=== PATIENT | female | born 1985 | race Caucasian/White ===

== ENCOUNTER 2018-08-26 20:38 | Inpatient (IN) | payer OTHER ==
[2018-08-26] MEDS ORDERED: NACL 0.9% 3 ML SYG IV (22:30)
[2018-08-26] MEDS ORDERED: HYDROCODONE/APAP (5/325) TAB PO ×2 (22:30)
[2018-08-27] MEDS: DEXTROSE 5%-0.45% NACL 1,000 ML IV ×4 (00:13→21:23)
[2018-08-27] MEDS: ACETAMINOPHEN 325 MG TAB PO ×2 (00:44→20:14)
[2018-08-27] MEDS: KETOROLAC 30 MG INJ IV ×4 (03:51→22:13)
[2018-08-27 05:48] LABS: ADD MAN DIFF? NO
[2018-08-27 05:52] LABS: BASOPHILS % 0.4 % (0.0-2.0); EOSINOPHILS # 0.2 10^3/ul (0.0-0.5); EOSINOPHILS % 1.6 % (0.0-7.0); HEMATOCRIT 42.8 % (37.0-47.0); HEMOGLOBIN 14.2 g/dl (12.0-16.0); LYMPHOCYTES # 2.4 10^3/ul (0.8-2.9); LYMPHOCYTES % 22.7 % (15.0-51.0); MEAN CORPUSCULAR HEMOGLOBIN 28.7 pg (29.0-33.0); MEAN CORPUSCULAR HGB CONC 33.2 g/dl (32.0-37.0); MEAN CORPUSCULAR VOLUME 86.6 fl (82.0-101.0); MEAN PLATELET VOLUME 9.9 fl (7.4-10.4); MONOCYTE # 0.9 10^3/ul (0.3-0.9); MONOCYTES % 8.6 % (0.0-11.0); PLATELET COUNT 321 10^3/UL (140-415); RED BLOOD COUNT 4.94 10^6/ul (4.20-5.40)
[2018-08-27 05:52] LABS: WHITE BLOOD COUNT 10.7 10^3/ul (4.8-10.8)
[2018-08-27 06:08] LABS: ALANINE AMINOTRANSFERASE 16 IU/L (13-69); ALBUMIN 4.3 g/dl (3.3-4.9); ALBUMIN/GLOBULIN RATIO 1.48; ALKALINE PHOSPHATASE 47 IU/L (42-121); ANION GAP 10 (5-13); ASPARTATE AMINO TRANSFERASE 22 IU/L (15-46); BILIRUBIN,INDIRECT 0.5 mg/dl (0-1.1); BILIRUBIN,TOTAL 0.5 mg/dl (0.2-1.3); BLOOD UREA NITROGEN 5 mg/dl (7-20); CALCIUM 9.4 mg/dl (8.4-10.2); CARBON DIOXIDE 24 mmol/L (21-31); CHLORIDE 105 mmol/L (97-110); CREATININE 0.57 mg/dl (0.44-1.00); Estimated GFR > 60 mL/min (>60); GLUCOSE 106 mg/dl (70-220); PHOSPHORUS 3.4 mg/dl (2.5-4.9); POTASSIUM 3.7 mmol/L (3.5-5.1); SODIUM 139 mmol/L (135-144); TOTAL PROTEIN 7.2 g/dl (6.1-8.1)
[2018-08-27] MEDS: ONDANSETRON 4 MG INJ IV ×2 (09:32→17:17)
[2018-08-27] MEDS: NICOTINE (14 MG/24 HR) PATCH TRANSDERM (11:51)
[2018-08-27 19:28] LABS: ADD UMIC YES; UR ASCORBIC ACID NEGATIVE (NEGATIVE); UR BACTERIA FEW /HPF (NONE SEEN); UR BILIRUBIN (Dip) NEGATIVE (NEGATIVE); UR BLOOD (Dip) NEGATIVE (NEGATIVE); UR CLARITY CLOUDY (CLEAR); UR COLOR YELLOW (YELLOW); UR GLUCOSE (Dip) NEGATIVE (NEGATIVE); UR KETONES (Dip) NEGATIVE (NEGATIVE); UR LEUKOCYTE ESTERASE (Dip) NEGATIVE Leu/ul (NEGATIVE); UR MUCUS FEW /HPF (NONE SEEN); UR NITRITE (Dip) NEGATIVE (NEGATIVE); UR RBC 2 /HPF (0-5); UR SPECIFIC GRAVITY (Dip) 1.013 (1.003-1.030); UR SQUAMOUS EPITHELIAL CELL MANY /HPF (FEW); UR TOTAL PROTEIN (Dip) NEGATIVE (NEGATIVE); UR UROBILINOGEN (Dip) NEGATIVE (NEGATIVE); UR WBC 2 /HPF (0-5)
[2018-08-27] MEDS ORDERED: PROCHLORPERAZINE 5 MG TAB PO (19:30)
[2018-08-27] MEDS ORDERED: CEFTRIAXONE 1 GM INJ IVPB (19:30)
[2018-08-27] MEDS: METOCLOPRAMIDE 10 MG INJ IV (20:13)
[2018-08-27] MEDS: CEFTRIAXONE 1 GM/NS 50 ML IVPB (20:52)
[2018-08-27] MEDS: metroNIDAZOLE 500 MG/NS (PMX) 100 ML IVPB (21:23)
[2018-08-28] MEDS: KETOROLAC 30 MG INJ IV ×4 (04:13→22:19)
[2018-08-28] MEDS: ONDANSETRON 4 MG INJ IV ×4 (04:13→21:06)
[2018-08-28] MEDS: DEXTROSE 5%-0.45% NACL 1,000 ML IV ×4 (04:18→22:24)
[2018-08-28 05:31] LABS: ADD MAN DIFF? NO
[2018-08-28 05:33] LABS: WHITE BLOOD COUNT 9.3 10^3/ul (4.8-10.8)
[2018-08-28 05:33] LABS: BASOPHIL # 0.1 10^3/ul (0.0-0.1); BASOPHILS % 0.6 % (0.0-2.0); EOSINOPHILS # 0.2 10^3/ul (0.0-0.5); HEMATOCRIT 43.7 % (37.0-47.0); HEMOGLOBIN 14.4 g/dl (12.0-16.0); LYMPHOCYTES % 21.8 % (15.0-51.0); MEAN CORPUSCULAR HEMOGLOBIN 28.9 pg (29.0-33.0); MEAN CORPUSCULAR VOLUME 87.6 fl (82.0-101.0); MEAN PLATELET VOLUME 9.8 fl (7.4-10.4); MONOCYTE # 0.8 10^3/ul (0.3-0.9); MONOCYTES % 8.4 % (0.0-11.0); NEUTROPHIL # 6.2 10^3/ul (1.6-7.5); NEUTROPHILS % 66.7 % (39.0-77.0); PLATELET COUNT 283 10^3/UL (140-415); RED BLOOD COUNT 4.99 10^6/ul (4.20-5.40); RED CELL DISTRIBUTION WIDTH 14.8 % (11.5-14.5)
[2018-08-28] MEDS: metroNIDAZOLE 500 MG/NS (PMX) 100 ML IVPB ×3 (05:56→22:18)
[2018-08-28 06:03] LABS: ANION GAP 9 (5-13); BLOOD UREA NITROGEN 7 mg/dl (7-20); CARBON DIOXIDE 24 mmol/L (21-31); CHLORIDE 105 mmol/L (97-110); CREATININE 0.69 mg/dl (0.44-1.00); Estimated GFR > 60 mL/min (>60); GLUCOSE 139 mg/dl (70-220); POTASSIUM 3.5 mmol/L (3.5-5.1); SODIUM 138 mmol/L (135-144)
[2018-08-28] MEDS: NICOTINE (14 MG/24 HR) PATCH TRANSDERM (09:20)
[2018-08-28] MEDS: ACETAMINOPHEN 325 MG TAB PO (19:50)
[2018-08-29] MEDS: DEXTROSE 5%-0.45% NACL 1,000 ML IV ×3 (00:18→20:18)
[2018-08-29] MEDS: ONDANSETRON 4 MG INJ IV ×3 (04:13→21:15)
[2018-08-29] MEDS: KETOROLAC 30 MG INJ IV ×4 (04:13→23:23)
[2018-08-29 05:23] LABS: ADD MAN DIFF? NO
[2018-08-29] MEDS: metroNIDAZOLE 500 MG/NS (PMX) 100 ML IVPB ×3 (05:24→21:16)
[2018-08-29 05:30] LABS: WHITE BLOOD COUNT 7.2 10^3/ul (4.8-10.8)
[2018-08-29 05:30] LABS: BASOPHIL # 0.1 10^3/ul (0.0-0.1); BASOPHILS % 0.7 % (0.0-2.0); EOSINOPHILS # 0.3 10^3/ul (0.0-0.5); EOSINOPHILS % 3.6 % (0.0-7.0); HEMATOCRIT 40.5 % (37.0-47.0); HEMOGLOBIN 13.6 g/dl (12.0-16.0); LYMPHOCYTES # 2.2 10^3/ul (0.8-2.9); LYMPHOCYTES % 30.6 % (15.0-51.0); MEAN CORPUSCULAR HEMOGLOBIN 29.3 pg (29.0-33.0); MEAN CORPUSCULAR HGB CONC 33.6 g/dl (32.0-37.0); MEAN CORPUSCULAR VOLUME 87.3 fl (82.0-101.0); MEAN PLATELET VOLUME 9.8 fl (7.4-10.4); MONOCYTE # 0.8 10^3/ul (0.3-0.9); MONOCYTES % 10.4 % (0.0-11.0); NEUTROPHIL # 3.9 10^3/ul (1.6-7.5); NEUTROPHILS % 54.1 % (39.0-77.0); PLATELET COUNT 248 10^3/UL (140-415); RED BLOOD COUNT 4.64 10^6/ul (4.20-5.40); RED CELL DISTRIBUTION WIDTH 14.6 % (11.5-14.5)
[2018-08-29 05:49] LABS: ANION GAP 7 (5-13); BLOOD UREA NITROGEN 8 mg/dl (7-20); CALCIUM 8.8 mg/dl (8.4-10.2); CARBON DIOXIDE 26 mmol/L (21-31); CHLORIDE 107 mmol/L (97-110); CREATININE 0.66 mg/dl (0.44-1.00); Estimated GFR > 60 mL/min (>60); GLUCOSE 96 mg/dl (70-220); MAGNESIUM 1.9 mg/dl (1.7-2.5); POTASSIUM 3.7 mmol/L (3.5-5.1); SODIUM 140 mmol/L (135-144)
[2018-08-29] MEDS: NICOTINE (14 MG/24 HR) PATCH TRANSDERM (08:58)
[2018-08-29] MEDS: ACETAMINOPHEN 325 MG TAB PO ×2 (15:52→21:54)
[2018-08-29] MEDS: LEVOFLOXACIN 500MG/D5W (PMX) 100 ML IVPB (16:45)
[2018-08-30] MEDS: metroNIDAZOLE 500 MG/NS (PMX) 100 ML IVPB ×2 (05:44→13:36)
[2018-08-30] MEDS: KETOROLAC 30 MG INJ IV ×4 (05:44→23:56)
[2018-08-30 06:16] LABS: ANION GAP 8 (5-13); BLOOD UREA NITROGEN 9 mg/dl (7-20); CALCIUM 9.1 mg/dl (8.4-10.2); CARBON DIOXIDE 27 mmol/L (21-31); CHLORIDE 105 mmol/L (97-110); CREATININE 0.71 mg/dl (0.44-1.00); Estimated GFR > 60 mL/min (>60); GLUCOSE 95 mg/dl (70-220); POTASSIUM 4.3 mmol/L (3.5-5.1); SODIUM 140 mmol/L (135-144)
[2018-08-30] MEDS: NICOTINE (14 MG/24 HR) PATCH TRANSDERM (08:40)
[2018-08-30] MEDS: ONDANSETRON 4 MG INJ IV ×2 (11:40→22:47)
[2018-08-30] MEDS: LEVOFLOXACIN 500MG/D5W (PMX) 100 ML IVPB (17:19)
[2018-08-30] MEDS: ACETAMINOPHEN 325 MG TAB PO (22:47)
[2018-08-31 06:12] LABS: ADD MAN DIFF? NO
[2018-08-31 06:21] LABS: BASOPHILS % 0.4 % (0.0-2.0); EOSINOPHILS # 0.2 10^3/ul (0.0-0.5); EOSINOPHILS % 1.8 % (0.0-7.0); HEMATOCRIT 40.5 % (37.0-47.0); HEMOGLOBIN 13.4 g/dl (12.0-16.0); LYMPHOCYTES # 2.2 10^3/ul (0.8-2.9); LYMPHOCYTES % 21.5 % (15.0-51.0); MEAN CORPUSCULAR HEMOGLOBIN 28.9 pg (29.0-33.0); MEAN CORPUSCULAR HGB CONC 33.1 g/dl (32.0-37.0); MEAN CORPUSCULAR VOLUME 87.3 fl (82.0-101.0); MEAN PLATELET VOLUME 9.7 fl (7.4-10.4); MONOCYTE # 0.9 10^3/ul (0.3-0.9); MONOCYTES % 8.6 % (0.0-11.0); NEUTROPHIL # 6.7 10^3/ul (1.6-7.5); NEUTROPHILS % 67.3 % (39.0-77.0); PLATELET COUNT 275 10^3/UL (140-415); RED BLOOD COUNT 4.64 10^6/ul (4.20-5.40); RED CELL DISTRIBUTION WIDTH 14.4 % (11.5-14.5)
[2018-08-31 06:40] LABS: ANION GAP 10 (5-13); BLOOD UREA NITROGEN 12 mg/dl (7-20); CALCIUM 10.3 mg/dl (8.4-10.2); CARBON DIOXIDE 30 mmol/L (21-31); CHLORIDE 102 mmol/L (97-110); CREATININE 0.73 mg/dl (0.44-1.00); Estimated GFR > 60 mL/min (>60); GLUCOSE 92 mg/dl (70-220); POTASSIUM 4.3 mmol/L (3.5-5.1); SODIUM 142 mmol/L (135-144)
[2018-08-31] MEDS: NICOTINE (14 MG/24 HR) PATCH TRANSDERM (09:33)
[2018-08-31] MEDS: KETOROLAC 30 MG INJ IV (09:38)
[2018-08-31] MEDS: ONDANSETRON 4 MG INJ IV (09:38)
== END 2018-08-31 14:52 | disposition home or self-care (01) | DRG 392 ==
LOC: 2NE 20:38
DX: K52.9 Noninfective gastroenteritis and colitis, unspecified (principal); F17.200 Nicotine dependence, unspecified, uncomplicated; F41.9 Anxiety disorder, unspecified; F31.9 Bipolar disorder, unspecified
CPT/HCPCS: 80048; 80053; 81001; 83735; 84100; 84703; 85025